=== PATIENT | female | born 1995 | race Caucasian/White ===

== ENCOUNTER 2018-11-30 01:44 | Inpatient (IN) | payer OTHER ==
[2018-11-30] MEDS: TERBUTALINE 1 MG/ML INJ SC ×2 (02:40→03:28)
[2018-11-30 02:51] LABS: ADD UMIC YES; UR ASCORBIC ACID NEGATIVE (NEGATIVE); UR BILIRUBIN (Dip) NEGATIVE (NEGATIVE); UR BLOOD (Dip) 1+ mg/dL (NEGATIVE); UR CLARITY CLEAR (CLEAR); UR COLOR STRAW (YELLOW); UR GLUCOSE (Dip) NEGATIVE (NEGATIVE); UR KETONES (Dip) NEGATIVE (NEGATIVE); UR LEUKOCYTE ESTERASE (Dip) 2+ Leu/ul (NEGATIVE); UR NITRITE (Dip) NEGATIVE (NEGATIVE); UR RBC 2 /HPF (0-5); UR SPECIFIC GRAVITY (Dip) 1.004 (1.003-1.030); UR TOTAL PROTEIN (Dip) NEGATIVE (NEGATIVE); UR UROBILINOGEN (Dip) NEGATIVE (NEGATIVE); UR WBC 2 /HPF (0-5)
[2018-11-30] MEDS: LACTATED RINGER'S 1,000 ML IV ×7 (04:18→22:49)
[2018-11-30] MEDS: NIFEdipine 10 MG CAP PO (06:19)
[2018-11-30] MEDS ORDERED: ACETAMINOPHEN 325 MG TAB PO (07:00)
[2018-11-30] MEDS: BETAMET NA PHOS/AC(6 MG/ML) 2 ML INJ SYG IM ×2 (07:58→23:30)
[2018-11-30 08:22] LABS: ADD MAN DIFF? NO
[2018-11-30 08:25] LABS: WHITE BLOOD COUNT 11.5 10^3/ul (4.8-10.8)
[2018-11-30 08:25] LABS: BASOPHILS % 0.3 % (0.0-2.0); EOSINOPHILS # 0.1 10^3/ul (0.0-0.5); EOSINOPHILS % 0.9 % (0.0-7.0); HEMATOCRIT 27.4 % (37.0-47.0); HEMOGLOBIN 8.8 g/dl (12.0-16.0); LYMPHOCYTES # 2.5 10^3/ul (0.8-2.9); LYMPHOCYTES % 22.2 % (15.0-51.0); MEAN CORPUSCULAR HEMOGLOBIN 26.8 pg (29.0-33.0); MEAN CORPUSCULAR HGB CONC 32.1 g/dl (32.0-37.0); MEAN CORPUSCULAR VOLUME 83.5 fl (82.0-101.0); MEAN PLATELET VOLUME 11.1 fl (7.4-10.4); MONOCYTES % 8.9 % (0.0-11.0); NEUTROPHIL # 7.7 10^3/ul (1.6-7.5); NEUTROPHILS % 66.9 % (39.0-77.0); PLATELET COUNT 273 10^3/UL (140-415); RED BLOOD COUNT 3.28 10^6/ul (4.20-5.40); RED CELL DISTRIBUTION WIDTH 13.2 % (11.5-14.5)
[2018-11-30] MEDS: PRENATAL VITAMIN PO (09:15)
[2018-11-30] MEDS: DOCUSATE SODIUM 100 MG CAP PO (09:15)
[2018-11-30] MEDS: TERBUTALINE 2.5 MG TAB PO (09:24)
[2018-12-01] MEDS: MAGNESIUM SULFATE 4 GM/100 ML 100 ML IV (00:03)
[2018-12-01] MEDS: MAGNESIUM SULFATE 20 GM/500 ML 500 ML IV ×3 (00:36→20:59)
[2018-12-01] MEDS: LACTATED RINGER'S 1,000 ML IV ×3 (05:00→10:32)
[2018-12-01 07:11] LABS: MAGNESIUM 5.2 mg/dl (1.7-2.5)
[2018-12-01] MEDS: PRENATAL VITAMIN PO (10:29)
[2018-12-01] MEDS: DOCUSATE SODIUM 100 MG CAP PO (10:29)
[2018-12-01 12:36] LABS: MAGNESIUM 5.8 mg/dl (1.7-2.5)
[2018-12-01 18:34] LABS: MAGNESIUM 5.9 mg/dl (1.7-2.5)
[2018-12-02] MEDS: LACTATED RINGER'S 1,000 ML IV ×2 (00:13→10:52)
[2018-12-02 01:35] LABS: MAGNESIUM 5.7 mg/dl (1.7-2.5)
[2018-12-02 07:45] LABS: MAGNESIUM 4.5 mg/dl (1.7-2.5)
[2018-12-02] MEDS: DOCUSATE SODIUM 100 MG CAP PO (10:51)
[2018-12-02] MEDS: PRENATAL VITAMIN PO (10:51)
[2018-12-02 16:00] LABS: RUPTURE FETAL MEMBRANES NEGATIVE (NEGATIVE)
== END 2018-12-02 16:53 | disposition home or self-care (01) | DRG 833 ==
LOC: OBT 01:44 → L-D 01:44 → OBT 06:47 → PP1 06:47 → L-D 07:23
DX: O60.03 Preterm labor without delivery, third trimester (principal); O46.93 Antepartum hemorrhage, unspecified, third trimester; Z3A.35 35 weeks gestation of pregnancy
CPT/HCPCS: 36415; 76818; 81001; 83735; 84112; 85025; 87081; 96360; 96361; 96372

== ENCOUNTER 2018-12-23 23:01 | Inpatient (IN) | payer OTHER ==
[2018-12-23 23:53] LABS: ADD UMIC YES; UR ASCORBIC ACID NEGATIVE (NEGATIVE); UR BACTERIA FEW /HPF (NONE SEEN); UR BILIRUBIN (Dip) NEGATIVE (NEGATIVE); UR BLOOD (Dip) NEGATIVE (NEGATIVE); UR CLARITY SLIGHTLY CLOUDY (CLEAR); UR COLOR YELLOW (YELLOW); UR GLUCOSE (Dip) NEGATIVE (NEGATIVE); UR KETONES (Dip) NEGATIVE (NEGATIVE); UR LEUKOCYTE ESTERASE (Dip) 3+ Leu/ul (NEGATIVE); UR NITRITE (Dip) NEGATIVE (NEGATIVE); UR RBC 4 /HPF (0-5); UR SPECIFIC GRAVITY (Dip) 1.015 (1.003-1.030); UR SQUAMOUS EPITHELIAL CELL FEW /HPF (FEW); UR TOTAL PROTEIN (Dip) NEGATIVE (NEGATIVE); UR UROBILINOGEN (Dip) NEGATIVE (NEGATIVE); UR WBC 39 /HPF (0-5)
[2018-12-24 00:04] LABS: AMPHETAMINE/METHAMPHETAMINE Negative (NEGATIVE); BARBITURATES Negative (NEGATIVE); BENZODIAZEPINES Negative (NEGATIVE); CANNABINOIDS Negative (NEGATIVE); COCAINE Negative (NEGATIVE); OPIATES Negative (NEGATIVE)
[2018-12-24] MEDS ORDERED: LACTATED RINGER'S 1,000 ML IV (03:59)
[2018-12-24] MEDS ORDERED: METHYLERGONOVINE 0.2 MG INJ IM ×2 (04:00→19:00)
[2018-12-24] MEDS ORDERED: OXYTOCIN 30 UNITS/LR 500 ML IV (04:00)
[2018-12-24] MEDS ORDERED: CARBOPROST 250 MCG INJ IM ×2 (04:00→19:00)
[2018-12-24] MEDS ORDERED: BUTORPHANOL 2 MG INJ IV (04:00)
[2018-12-24] MEDS: LACTATED RINGER'S 1,000 ML IV ×3 (04:29→12:45)
[2018-12-24] MEDS: AMPICILLIN 2 GM/NS (PMX) 100 ML IV (04:49)
[2018-12-24 05:01] LABS: ADD MAN DIFF? NO
[2018-12-24 05:07] LABS: BASOPHIL # 0.1 10^3/ul (0.0-0.1); BASOPHILS % 0.6 % (0.0-2.0); EOSINOPHILS # 0.1 10^3/ul (0.0-0.5); EOSINOPHILS % 0.8 % (0.0-7.0); HEMATOCRIT 29.2 % (37.0-47.0); HEMOGLOBIN 9.4 g/dl (12.0-16.0); LYMPHOCYTES # 2.5 10^3/ul (0.8-2.9); LYMPHOCYTES % 23.9 % (15.0-51.0); MEAN CORPUSCULAR HEMOGLOBIN 26.4 pg (29.0-33.0); MEAN CORPUSCULAR HGB CONC 32.2 g/dl (32.0-37.0); MEAN PLATELET VOLUME 10.9 fl (7.4-10.4); MONOCYTE # 0.9 10^3/ul (0.3-0.9); MONOCYTES % 8.8 % (0.0-11.0); NEUTROPHILS % 65.3 % (39.0-77.0); PLATELET COUNT 310 10^3/UL (140-415); RED BLOOD COUNT 3.56 10^6/ul (4.20-5.40); RED CELL DISTRIBUTION WIDTH 14.5 % (11.5-14.5)
[2018-12-24 05:07] LABS: WHITE BLOOD COUNT 10.6 10^3/ul (4.8-10.8)
[2018-12-24] MEDS: BUTORPHANOL 2 MG INJ IV ×2 (05:19→10:03)
[2018-12-24 05:31] LABS: INR 0.88; PT RATIO 0.9
[2018-12-24 05:32] LABS: PARTIAL THROMBOPLASTIN TIME 26.4 Sec (23.0-35.0)
[2018-12-24 07:34] LABS: HEPATITIS B SURFACE ANTIGEN NEGATIVE (NEGATIVE)
[2018-12-24] MEDS: AMPICILLIN 1 GM/NS (PMX) 50 ML IV ×3 (08:52→16:00)
[2018-12-24 15:08] LABS: RAPID PLASMA REAGIN NONREACTIVE (NR)
[2018-12-24] MEDS: LIDOCAINE 1% (MPF) 30 ML INJ INJ (15:51)
[2018-12-24] MEDS: MINERAL OIL LIGHT 10 ML VIAL TOP (15:51)
[2018-12-24] MEDS: MISOPROSTOL 200 MCG TAB PR ×2 (16:06→16:54)
[2018-12-24] MEDS: OXYTOCIN 30 UNITS/LR 500 ML IV ×3 (16:06→22:00)
[2018-12-24] MEDS: IBUPROFEN 600 MG TAB PO (17:29)
[2018-12-24] MEDS: LACTATED RINGER'S 1,000 ML IV* (18:46)
[2018-12-24] MEDS: DEXTROSE 5%-LR 1,000 ML IV (18:46)
[2018-12-24] MEDS ORDERED: ACETAMINOPHEN 325 MG TAB PO (19:00)
[2018-12-24] MEDS ORDERED: OXYCODONE/ASPIRIN (4.88/325) TAB PO (19:00)
[2018-12-24] MEDS ORDERED: ONDANSETRON 4 MG INJ IV (19:00)
[2018-12-24] MEDS ORDERED: DIPHENHYDRAMINE 50 MG INJ IV (19:00)
[2018-12-24] MEDS ORDERED: MAGNESIUM HYDROXIDE 30ML CUP PO (19:00)
[2018-12-24] MEDS ORDERED: SENNA/DOCUSATE NA (8.6MG/50MG) TAB PO (19:00)
[2018-12-24] MEDS ORDERED: MISOPROSTOL 200 MCG TAB PR (19:00)
[2018-12-24] MEDS ORDERED: ZOLPIDEM 5 MG TAB PO (19:00)
[2018-12-25] MEDS: WITCH HAZEL/GLYCERIN PAD PR (00:37)
[2018-12-25] MEDS: IBUPROFEN 600 MG TAB PO ×4 (00:37→18:09)
[2018-12-25] MEDS: LANOLIN HPA 1 PKT TOP (00:38)
[2018-12-25] MEDS: BENZOCAINE 20% 56 ML SPRAY TOP (00:38)
[2018-12-25] MEDS: DIBUCAINE 1% 30 GM OINT TOP (00:38)
[2018-12-25] MEDS: LACTATED RINGER'S 1,000 ML IV* ×3 (00:48→18:46)
[2018-12-25] MEDS: DEXTROSE 5%-LR 1,000 ML IV ×3 (02:41→18:46)
[2018-12-25 05:08] LABS: ADD MAN DIFF? NO
[2018-12-25 05:12] LABS: WHITE BLOOD COUNT 19.5 10^3/ul (4.8-10.8)
[2018-12-25 05:12] LABS: ABNORMAL IP MESSAGE 1; BASOPHIL # 0.1 10^3/ul (0.0-0.1); BASOPHILS % 0.3 % (0.0-2.0); EOSINOPHILS % 0.2 % (0.0-7.0); HEMATOCRIT 25.3 % (37.0-47.0); HEMOGLOBIN 8.2 g/dl (12.0-16.0); LYMPHOCYTES # 2.4 10^3/ul (0.8-2.9); LYMPHOCYTES % 12.4 % (15.0-51.0); MEAN CORPUSCULAR HEMOGLOBIN 26.2 pg (29.0-33.0); MEAN CORPUSCULAR HGB CONC 32.4 g/dl (32.0-37.0); MEAN CORPUSCULAR VOLUME 80.8 fl (82.0-101.0); MEAN PLATELET VOLUME 10.9 fl (7.4-10.4); MONOCYTE # 1.8 10^3/ul (0.3-0.9); MONOCYTES % 9.3 % (0.0-11.0); NEUTROPHIL # 15.1 10^3/ul (1.6-7.5); NEUTROPHILS % 77.2 % (39.0-77.0); PLATELET COUNT 286 10^3/UL (140-415); RED BLOOD COUNT 3.13 10^6/ul (4.20-5.40); RED CELL DISTRIBUTION WIDTH 14.3 % (11.5-14.5)
[2018-12-25 05:15] LABS: POSITIVE DIFF @See below
[2018-12-26] MEDS: IBUPROFEN 600 MG TAB PO ×3 (00:31→12:00)
[2018-12-26] MEDS: LACTATED RINGER'S 1,000 ML IV* ×2 (02:46→10:46)
[2018-12-26] MEDS: DEXTROSE 5%-LR 1,000 ML IV ×2 (02:46→10:46)
[2018-12-26 05:09] LABS: ADD MAN DIFF? NO
[2018-12-26 05:12] LABS: BASOPHIL # 0.1 10^3/ul (0.0-0.1); BASOPHILS % 0.3 % (0.0-2.0); EOSINOPHILS # 0.2 10^3/ul (0.0-0.5); EOSINOPHILS % 1.2 % (0.0-7.0); HEMATOCRIT 21.3 % (37.0-47.0); LYMPHOCYTES # 3.5 10^3/ul (0.8-2.9); LYMPHOCYTES % 22.6 % (15.0-51.0); MEAN CORPUSCULAR HEMOGLOBIN 26.6 pg (29.0-33.0); MEAN CORPUSCULAR HGB CONC 32.9 g/dl (32.0-37.0); MEAN PLATELET VOLUME 11.1 fl (7.4-10.4); MONOCYTE # 1.3 10^3/ul (0.3-0.9); MONOCYTES % 8.2 % (0.0-11.0); NEUTROPHIL # 10.5 10^3/ul (1.6-7.5); NEUTROPHILS % 67.1 % (39.0-77.0); PLATELET COUNT 258 10^3/UL (140-415); RED BLOOD COUNT 2.63 10^6/ul (4.20-5.40); RED CELL DISTRIBUTION WIDTH 14.6 % (11.5-14.5)
[2018-12-26 05:12] LABS: WHITE BLOOD COUNT 15.6 10^3/ul (4.8-10.8)
[2018-12-26] MEDS: MEASLES,MUMPS,RUBELLA VACCINE INJ SC* (09:00)
[2018-12-26] MEDS: DIPHTH/TET/ACEL PERTUSS (ADULT) 0.5 ML VIAL IM* (11:55)
== END 2018-12-26 16:53 | disposition home or self-care (01) | DRG 807 ==
LOC: OBT 23:01 → L-D 12-24 03:50 → MS1 12-24 17:40
PROC: 10E0XZZ Delivery of Products of Conception, External Approach (ICD-10-PCS; principal; 2018-12-24)
PROC: 0UQGXZZ Repair Vagina, External Approach (ICD-10-PCS; 2018-12-24)
PROC: 0W8NXZZ Division of Female Perineum, External Approach (ICD-10-PCS; 2018-12-24)
DX: O71.4 Obstetric high vaginal laceration alone (principal); Z37.0 Single live birth; Z3A.38 38 weeks gestation of pregnancy
CPT/HCPCS: 76818; 80307; 81001; 85025; 85610; 85730; 86592; 86850; 86900; 86901; 87340; 87591; 90715